=== PATIENT | female | born 1945 | race Caucasian/White ===

== ENCOUNTER → 2016-11-06 | Outpatient (CLI) | payer OTHER | LOC: BMCIMAGING 12:55 | PROVIDERS: ATTEND Internal Medicine | DX: Z12.31 Encounter for screening mammogram for malignant neoplasm of breast (principal); Z80.3 Family history of malignant neoplasm of breast | CPT/HCPCS: G0202 ==

== ENCOUNTER → 2017-05-09 | Outpatient (CLI) | payer OTHER | LOC: FIMAGING 09:00 | PROVIDERS: ATTEND Urology | DX: N28.1 Cyst of kidney, acquired (principal); N13.30 Unspecified hydronephrosis ==

== ENCOUNTER → 2018-07-09 | Outpatient (CLI) | payer OTHER | LOC: FIMAGING 09:56 | DX: M17.12 Unilateral primary osteoarthritis, left knee (principal); M48.061 Spinal stenosis, lumbar region without neurogenic claudication; M51.36 Other intervertebral disc degeneration, lumbar region ==

== ENCOUNTER 2018-09-24 10:27 | Emergency (ER) | payer OTHER ==
--- NOTE | 2018-09-24 10:56 | EDPHY ---
H & P Time Seen by Provider: 09/24/18 10:39 HPI/ROS: HPI Right upper lateral chest area pain. Cough. 73-year-old female by private vehicle. This patient reports that she has had a dry cough for about the last month and a half. She reports associated with this she has had intermittent pain which she describes as involving her right anterior and lateral lower rib area. She reports that it has been a little bit worse over the last day or 2. Again associated with a dry nonproductive cough. She has not had a fever. She does have a history of pulmonary hypertension. She has had her gallbladder removed. She denies any new shortness of breath. She states because of her pulmonary hypertension she has chronic shortness of breath. She has not had a fever. ROS: Constitutional: No fever, no chills. No weakness. Eyes: No discharge. No changes in vision. ENT: No sore throat. No nasal congestion or rhinorrhea. Respiratory: As above. Cardiac: As above, no palpitations. Gastrointestinal: As above, no vomiting, no diarrhea. Genitourinary: No hematuria. No dysuria or increased frequency with urination. Musculoskeletal: No back pain. No neck pain. No myalgias or arthralgias. Skin: No rashes. Neurological: No headache. No focal weakness or altered sensation. Past medical history: Pulmonary hypertension, appendectomy, cholecystectomy, C- section, reactive airway disease, knee replacement. Obesity. Social history: Nonsmoker. No alcohol. She is here by herself. Physical Exam: General Appearance: Alert, pleasant, she is not in distress. Obese habitus. This patient is responding to questions appropriately and in full sentences. This patient appears well-hydrated and well-nourished. Eyes: Pupils equal and round no pallor or injection. No lid edema, erythema or injection. Respiratory: There are no retractions, lungs are clear to auscultation with good air movement bilaterally. No tachypnea. Cardiovascular: Regular rate and rhythm. No murmur. Chest wall is stable to AP and lateral palpation. No focal tenderness on palpation of the right lower lateral rib area. No rash noted. Gastrointestinal: Obese habitus. Abdomen is soft and nontender, no masses, bowel sounds normal. No focal tenderness at McBurney's point. No Alejandra sign. Neurological: Motor sensory function is grossly intact. Cranial nerves are normal. Gait is normal. Skin: Warm and dry, no rashes. Musculoskeletal: Neck is supple and nontender. No CVA tenderness on palpation bilaterally. Extremities are symmetrical. All joints range without pain or impingement. Psychiatric: No agitation. No depression. Database: EKG: EKG time is 10:44 a.m.; EKG shows a narrow complex normal sinus rhythm with a ventricular rate of 56. The AL, QRS, QT intervals are within normal limits. There are no ST-T wave changes indicative of ischemic or injury pattern. No evidence of right heart strain. Interpreted by me. Imaging: Chest x-ray PA and lateral: The cardiac mediastinal silhouette is unremarkable. Probable mild heart failure. Interpreted by me. CT angiogram of chest: No pulmonary embolism. Findings consistent with pulmonary hypertension. Results were discussed with staff radiologist Dr. Lonnie Leong. Procedures: Emergency department course: Triage vital signs reviewed. She is mildly hypertensive. Vital signs are otherwise normal. IV was placed. She was placed on a manufacturing inspector. EKG was obtained and reviewed by myself. 1:00 p.m., the patient was re-evaluated, she is resting comfortably at this time. Her vital signs reviewed and remained normal. I discussed the results of her CT angiogram of her chest. She is comfortable at this time and is requesting discharge. Results of her blood work reviewed. For imaging tests were reviewed. I will have her follow up with her primary care physician in 1- 2 days for re-evaluation. She is in agreement with this plan. Return to emergency department precautions of thoroughly been reviewed with her. All of her questions were answered. She was discharged from the emergency department in good condition. Differential Diagnosis: The differential diagnosis on this patient includes but is not limited to costal chondritis, pleurisy, pulmonary embolism, hepatitis. This represents a partial list of diagnoses considered. These considerations are based on history , physical exam, past history, reassessment and diagnostic testing. Smoking Status: Never smoked Constitutional: Initial Vital Signs Temperature (C) 36.7 C 09/24/18 10:30 Heart Rate 63 09/24/18 10:30 Respiratory Rate 14 09/24/18 10:30 Blood Pressure 153/83 H 09/24/18 10:30 O2 Sat (%) 95 09/24/18 10:30 O2 Delivery Mode Room Air Allergies/Adverse Reactions: meperidine HCl [From Demerol] Allergy (Intermediate, Verified 09/15/13 15:13) Hives aspirin Allergy (Mild, Verified 09/15/13 15:14) Hives Home Medications: Medication Instructions Recorded Albuterol Sulfate [Albuterol 1 puffs IH Q4H PRN 03/07/14 Inhaler Hfa] Atorvastatin Calcium [Lipitor 20 20 mg PO HS 03/07/14 mg (*)] Cholecalciferol Vit D3 [Vitamin D3 2,000 units PO DAILY 03/07/14 (*)] Herbals/Supplements -Info Only 1 ea PO DAILY 03/07/14 medroxyPROGESTERone ACETATE 2.5 mg PO HS 03/07/14 [Provera] Acetaminophen [Tylenol Tablet] 650 mg PO Q6 PRN 10/27/14 Mometasone 220Mcg Inhaler [Asmanex] 2 puffs IH HS 10/27/14 oxyCODONE IR [Oxycodone Ir (RX)] 5 - 15 mg PO Q3H PRN 11/05/14 traMADol [Ultram] 100 mg PO BID 11/05/14 AZITHROMYCIN [Z-PACK] 250 mg PO DAILY #6 packet 11/18/14 Medical Decision Making - Data Points Laboratory Results: Laboratory Results 09/24/18 10:45 09/24/18 10:45 Point of Care Test Results: Chemistry 09/24/18 10:50 POC Troponin I 0.00 ng/mL ng/mL (0.00-0.08) Departure - Departure Disposition: Home, Routine, Self-Care Clinical Impression: Right-sided chest wall pain Condition: Good Instructions: Chest Wall Pain (ED) Additional Instructions: Read and follow provided instructions. Follow-up with your primary care physician in 1-2 days for re-evaluation as discussed. Continue taking your medication as prescribed. Return to the emergency department for worsening symptoms, worsening pain, shortness of breath or other serious concerns. Referrals: Tristen Kunz MD [Primary Care Provider] - As per Instructions
[2018-09-24 10:59] LABS: PLATELET COUNT 230 10^3/uL (150-400)
[2018-09-24 11:06] LABS: INR 1.08 (0.83-1.16); PROTIME(PATIENT) 13.6 SEC (12.0-15.0)
[2018-09-24] MEDS ORDERED: IOPAMIDOL (ISOVUE 370) 100 ML BTL IV ONE (11:58)
[2018-09-24 12:53] VITALS: BP 133/70
--- NOTE | 2018-09-24 15:17 | CPEKG ---
Test Reason : OPEN Blood Pressure : / mmHG Vent. Rate : 056 BPM Atrial Rate : 057 BPM P-R Int : 164 ms QRS Dur : 103 ms QT Int : 421 ms P-R-T Axes : 020 -40 010 degrees QTc Int : 407 ms Sinus rhythm Inferior infarct, old Consider anterior infarct Confirmed by Janeth Weaver ([id number] on 09/24/2018 3:16:59 PM Referred By: Janeth Weaver Confirmed By:Janeth Weaver
== END 2018-09-24 13:47 | disposition home or self-care (01) ==
DX: R07.89 Other chest pain (principal); R05 Cough
CPT/HCPCS: 71046; 71275; 93005; 99285; Q9967; 84484-ER